=== PATIENT | male | born 1965 | race Caucasian/White ===

== ENCOUNTER 2018-12-11 22:36 | Emergency (ER) | payer BC, OTHER ==
[2018-12-11] MEDS ORDERED: Acetaminophen/HYDROcodone 325-5 MG Tab PO ONE (22:37)
[2018-12-11] MEDS ORDERED: Amoxicillin/Clavulanate K 875-125 MG Tab PO ONE (22:37)
[2018-12-11] MEDS ORDERED: Take Home: Acetaminophen/HYDROcodone 325-5 MG, 2 Tab Pack PO ONE (23:09)
[2018-12-11] MEDS ORDERED: Ketorolac 60 MG/2 ML SDV IM ONE (23:09)
[2018-12-11] MEDS ORDERED: Take Home: Amoxicillin/Clavulanate K 875-125 MG Tab, 2 Tab Pack PO ONE (23:10)
--- NOTE | 2018-12-11 23:14 | EDM.PDOC ---
ED HPI GENERAL MEDICAL PROBLEM - General Chief Complaint: General Stated Complaint: toothache Time Seen by Provider: 12/11/18 23:06 Source of Information: Reports: Patient History Limitations: Reports: No Limitations - History of Present Illness INITIAL COMMENTS - FREE TEXT/NARRATIVE: patient presents to ER with an ongoing toothache. Has been bothering him for about 2 weeks, worse over the last 24 hours. Taking tylenol and had been covering the discomfort for the most part until today. Now rates his pain at a 5/10. Notes that the pain radiates to his left ear and jaw at this time. Plans to call the dentist office on Thursday am. Has a tooth that is broken off on the top left but its the bottom molar that has been causing the pain. No fevers. No facial swelling. Onset: Gradual Duration: Day(s): Location: Reports: Face Quality: Reports: Sharp, Throbbing Severity: Moderate Improves with: Reports: Medication Treatments DIAGNOSTIC ASSISTANT: Reports: Acetaminophen Left Tooth/Teeth Pain Score (Numeric/FACES): 5 - Related Data Allergies Allergy/AdvReac Type Severity Reaction Status Date / Time No Known Allergies Allergy Verified 12/11/18 22:39 Home Meds: Home Meds Cholecalciferol (Vitamin D3) [Vitamin D3] 5,000 unit PO DAILY 12/11/18 [History] Lisinopril 10 mg PO DAILY 12/11/18 [History] Magnesium 250 mg PO DAILY 12/11/18 [History] Multivitamin [Daily Multiple Vitamin] 1 tab PO DAILY 12/11/18 [History] [place]-3/DHA/Epa/Fish Oil [Fish Oil 1,000 mg Softgel] 1 tab PO DAILY 12/11/18 [ History] Potassium 1 tab PO DAILY 12/11/18 [History] metFORMIN HCl [Metformin HCl] 500 mg PO QID 12/11/18 [History] Past Medical History Cardiovascular History: Reports: High Cholesterol, Hypertension Gastrointestinal History: Reports: Colon Polyp Musculoskeletal History: Reports: None Endocrine/Metabolic History: Reports: Diabetes, Type II, Obesity/BMI 30+ - Past Surgical History Cardiovascular Surgical History: Reports: None GI Surgical History: Reports: Colonoscopy, Polypectomy Endocrine Surgical History: Reports: None Musculoskeletal Surgical History: Reports: Arthroscopic Procedure Social & Family History - Family History Family Medical History: Noncontributory - Tobacco Use Smoking Status *Q: Never Smoker Second Hand Smoke Exposure: No - Caffeine Use Caffeine Use: Reports: Coffee - Recreational Drug Use Recreational Drug Use: No ED ROS GENERAL - Review of Systems Review Of Systems: See Below Constitutional: Denies: Fever, Chills, Malaise, Weakness, Decreased Appetite HEENT: Reports: Ear Pain, Other (toothache). Denies: Sinus Problem, Throat Pain , Throat Swelling Respiratory: Denies: Shortness of Breath, Cough Cardiovascular: Denies: Chest Pain, Edema, Lightheadedness Endocrine: Denies: Fatigue GI/Abdominal: Denies: Abdominal Pain, Nausea, Vomiting : Reports: No Symptoms Musculoskeletal: Reports: No Symptoms Skin: Reports: No Symptoms Neurological: Reports: No Symptoms ED EXAM, GENERAL - Physical Exam Exam: See Below Exam Limited By: No Limitations General Appearance: Alert, WD/WN, No Apparent Distress Ears: Normal External Exam, Normal TMs Nose: Normal Inspection, Normal Mucosa, No Blood Throat/Mouth: Normal Inspection, Normal Oropharynx, Other (tender gum line to back lower left area. Tooth has been previously filled. Several missing teeth and a broken tooth on the upper gum line.) Neck: Normal Inspection, Supple, Lymphadenopathy (L) Respiratory/Chest: No Respiratory Distress, Lungs Clear, Normal Breath Sounds Cardiovascular: Regular Rate, Rhythm Course - Vital Signs Last Recorded V/S: Last Vital Signs Temp 97.1 F 12/11/18 22:36 Pulse 80 12/11/18 22:36 Resp 20 12/11/18 22:36 BP 134/82 12/11/18 22:36 Pulse Ox 97 12/11/18 22:36 Departure - Departure Time of Disposition: 23:14 Disposition: Home, Self-Care 01 Condition: Good Clinical Impression: Tooth abscess - Discharge Information *PRESCRIPTION DRUG MONITORING PROGRAM REVIEWED*: No *COPY OF PRESCRIPTION DRUG MONITORING REPORT IN PATIENT ALDAIR: No Additional Instructions: 1. Push fluids 2. Soft diet 3. Alternate [place] one tab with ibuprofen every 3 hours as needed for the pain 4. Augmentin 875 mg BID for 10 days 5. Contact dentist office on Thursday for appointment
== END 2018-12-11 23:28 | disposition home or self-care (01) ==
LOC: CC.ED 22:36
DX: K04.7 Periapical abscess without sinus (principal); I10 Essential (primary) hypertension; E11.9 Type 2 diabetes mellitus without complications; E78.00 Pure hypercholesterolemia, unspecified; Z79.84 Long term (current) use of oral hypoglycemic drugs; Z79.899 Other long term (current) drug therapy
CPT/HCPCS: 96372; 99282; A9270; J1885

== ENCOUNTER 2019-05-26 15:36 | Emergency (ER) | payer BC ==
[2019-05-26] MEDS ORDERED: Aspirin 81 MG Tab.Chew PO ONE (16:13)
--- NOTE | 2019-05-26 16:13 | EDM.PDOC ---
ED HPI GENERAL MEDICAL PROBLEM - General Chief Complaint: Chest Pain Stated Complaint: NAUSEA Time Seen by Provider: 05/26/19 16:06 Source of Information: Reports: Patient History Limitations: Reports: No Limitations - History of Present Illness INITIAL COMMENTS - FREE TEXT/NARRATIVE: States that he went back to work on Thursday after being gone for 3 months as he had bypass in Feb. 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 has been using upper arms to pull himself up. He has been nauseated but no vomiting. Did not eat anything unusual. No SOB noted. Pain across the left chest does increase with movement of the left arm. No increase in pain with deep breathe. Location: Reports: Chest Quality: Reports: Ache, Pressure Associated Symptoms: Reports: Chest Pain. Denies: Cough chest tightness Pain Score (Numeric/FACES): 2 - Related Data Allergies Allergy/AdvReac Type Severity Reaction Status Date / Time No Known Allergies Allergy Verified 05/26/19 15:44 Home Meds: Home Meds Lisinopril 10 mg PO DAILY 12/11/18 [History] Magnesium 250 mg PO DAILY 12/11/18 [History] Multivitamin [Daily Multiple Vitamin] 1 tab PO DAILY 12/11/18 [History] [place]-3/DHA/Epa/Fish Oil [Fish Oil 1,000 mg Softgel] 1,000 mg PO DAILY 12/11/18 [History] Potassium 1 tab PO DAILY 12/11/18 [History] Ascorbic Acid [Vitamin C] 1,000 mg PO DAILY 03/29/19 [History] Aspirin [Halfprin] 81 mg PO DAILY 03/29/19 [History] Metoprolol Succinate [Toprol XL 100mg] 100 mg PO DAILY 03/29/19 [History] atorvaSTATin [Lipitor] 40 mg PO DAILY 03/29/19 [History] metFORMIN HCl [Metformin HCl] 1,000 mg PO BID 03/29/19 [History] Past Medical History Cardiovascular History: Reports: High Cholesterol, Hypertension Other Cardiovascular History: sees Dr. Tacho Gomez. Had diabetic appt, mentioned he had been SOB when outside walking as well as some arm and shoulder pain. Had a stress test in [place], then sent to see cardiology in [place]. Has had an echo here. Said he had a recent A1c at 7.8. Has had ankle surgery in the past, is diabetic. Postop: said he has seen Dr. Gomez twice, and kalyani twice. Has seen Rahul Stover in the past Gastrointestinal History: Reports: Colon Polyp Musculoskeletal History: Reports: None Endocrine/Metabolic History: Reports: Diabetes, Type II, Obesity/BMI 30+ - Past Surgical History Cardiovascular Surgical History: Reports: None, Coronary Artery Bypass GI Surgical History: Reports: Colonoscopy, Polypectomy Endocrine Surgical History: Reports: None Musculoskeletal Surgical History: Reports: Arthroscopic Procedure Social & Family History - Family History Family Medical History: Noncontributory - Tobacco Use Smoking Status *Q: Never Smoker - Caffeine Use Caffeine Use: Reports: Coffee - Living Situation & Occupation Living situation: Reports: , with Spouse Occupation: Employed ED ROS GENERAL - Review of Systems Review Of Systems: See Below Constitutional: Denies: Fever, Chills HEENT: Reports: No Symptoms Respiratory: Reports: No Symptoms Cardiovascular: Reports: Chest Pain. Denies: Edema, Lightheadedness GI/Abdominal: Reports: No Symptoms Musculoskeletal: Reports: Other (see HPI) Skin: Reports: No Symptoms Neurological: Reports: No Symptoms ED EXAM, GENERAL - Physical Exam Exam: See Below Exam Limited By: No Limitations General Appearance: Alert, WD/WN, Mild Distress Ears: Normal External Exam, Normal Canal, Normal TMs Nose: Normal Inspection Throat/Mouth: Normal Inspection, Normal Oropharynx, No Airway Compromise Head: Atraumatic, Normocephalic Neck: Normal Inspection, Supple, Non-Tender, Full Range of Motion Respiratory/Chest: No Respiratory Distress, Lungs Clear, Normal Breath Sounds, Other (anterior left chest wall is tender with palpation to the area. Increase in discomfort noted when moving the left arm above head. NO bruising or swelling noted.) Cardiovascular: Regular Rate, Rhythm, No Edema GI/Abdominal: Normal Bowel Sounds, Soft, Non-Tender Back Exam: Normal Inspection, Full Range of Motion Extremities: Normal Inspection, Normal Range of Motion, Non-Tender, No Pedal Edema, Normal Capillary Refill Neurological: Alert, Oriented Psychiatric: Normal Affect Skin Exam: Warm, Dry, Intact Course - Vital Signs Last Recorded V/S: Last Vital Signs Temp 98.2 F 05/26/19 16:28 Pulse 82 05/26/19 16:28 Resp 19 05/26/19 16:28 BP 170/84 H 12/19/19 16:28 Pulse Ox 97 05/26/19 16:28 - Orders/Labs/Meds Labs: Laboratory Tests 05/26/19 05/26/19 05/26/19 Range/Units 16:09 16:10 16:11 WBC 5.4 (5.0-10.0) 10^3/uL RBC 5.17 (4.50-6.00) 10^6/uL Hgb 13.8 L (14.0-18.0) g/dL Hct 42.7 (40.0-54.0) % MCV 82.6 (82.0-94.0) fL MCH 26.7 L (27.0-32.0) pg MCHC 32.3 L (33.0-38.0) g/dL RDW Coeff of [place] 15.3 H (11.0-15.0) % Plt Count 263 (150-400) 10^3/uL Neut % (Auto) 51.2 (35-85) % Lymph % (Auto) 38.4 (10-55) % [place] % (Auto) 7.6 (0-16) % Eos % (Auto) 2.6 (0-5) % Baso % (Auto) 0.2 (0-3) % Neut # (Auto) 2.74 (1.80-7.00) 10^3/uL Lymph # (Auto) 2.06 (1.00-4.80) 10^3/uL [place] # (Auto) 0.41 (0.00-0.80) 10^3/uL Eos # (Auto) 0.14 (0.00-0.45) 10^3/uL Baso # (Auto) 0.01 10^3/uL PT 9.8 (9.7-12.3) SEC INR 0.95 (0.92-1.18) APTT 25.5 (23.2-32.3) SEC Sodium 140 (136-145) mEq/L Potassium 4.3 (3.5-5.0) mEq/L Chloride 103 (98-106) mEq/L Carbon Dioxide 26 (21-32) mmol/L BUN 24 H (7-18) mg/dL Creatinine 1.0 (0.7-1.3) mg/dL Est Cr Clr Drug Dosing 87.19 mL/min Estimated GFR (MDRD) > 60 (>=60) mL/min Glucose 171 H D (75-99) mg/dL Calcium 9.1 (8.4-10.1) mg/dL Total Bilirubin 0.2 (0.0-1.0) mg/dL AST 14 L (15-37) U/L ALT 34 (12-78) U/L Alkaline Phosphatase 85 (46-116) U/L Lactate Dehydrogenase 137 (100-190) U/L Creatine Kinase 107 (35-232) U/L Troponin I < 0.017 (0.00-0.06) ng/mL Total Protein 7.3 (6.4-8.2) g/dL Albumin 3.8 (3.4-5.0) g/dL Lipase 216 (73-393) U/L Meds: Medications Discontinued Medications Generic Name Dose Route Start Last Admin Trade Name Freq PRN Reason Stop Dose Admin Aspirin 324 mg 05/26/19 16:13 05/26/19 16:16 Aspirin PO 05/26/19 16:14 324 mg ONETIME ONE Administration Departure - Departure Time of Disposition: 17:00 Disposition: Home, Self-Care 01 Condition: Good Clinical Impression: Chest wall pain Instructions: Chest Wall Pain, [id number] Referrals: Tacho Gomez MD [Primary Care Provider] - Forms: ED Department Discharge Additional Instructions: tylenol or advil as needed for pain Do less pulling and pushing with upper arms. Need to increase the muscle strength in upper arms with exercises recheck if pain changes or becomes worse. Sepsis Event Note - Evaluation Sepsis Screening Result: No Definite Risk - Focused Exam Date Exam was Performed: 05/27/19 Time Exam was Performed: 18:00 - Problem List & Annotations (1) Chest wall pain SNOMED Code(s): 419235048 Code(s): R07.89 - OTHER CHEST PAIN Status: Acute Priority: High - Problem List Review Problem List Initiated/Reviewed/Updated: Yes
[2019-05-26 16:36] LABS: CHLORIDE,CL 103 mEq/L (98-106); SODIUM,NA 140 mEq/L (136-145)
== END 2019-05-26 17:09 | disposition home or self-care (01) ==
LOC: CC.ED 15:36
DX: R07.89 Other chest pain (principal); E78.00 Pure hypercholesterolemia, unspecified; I10 Essential (primary) hypertension; E11.9 Type 2 diabetes mellitus without complications; E66.9 Obesity, unspecified; Z68.33 Body mass index [BMI] 33.0-33.9, adult; Z95.1 Presence of aortocoronary bypass graft; Z79.899 Other long term (current) drug therapy; Z79.82 Long term (current) use of aspirin; Z79.84 Long term (current) use of oral hypoglycemic drugs
CPT/HCPCS: 36415; 71046; 80053; 82550; 83615; 83690; 84484; 85025; 85610; 85730; 93005; 99285-25; A9270-GY

== ENCOUNTER 2019-10-22 10:07 | Emergency (ER) | payer BC, OTHER ==
[2019-10-22] MEDS ORDERED: Lidocaine 1% 20 ML MDV INJECT ONE (10:11)
[2019-10-22] MEDS ORDERED: Diphtheria,Pertussis(Acell),Tetanus Vaccine 0.5 ML Syringe IM ONE (10:58)
--- NOTE | 2019-10-22 11:05 | EDM.PDOC ---
ED HPI GENERAL MEDICAL PROBLEM - General Chief Complaint: Laceration Stated Complaint: "Cut my fingers" Time Seen by Provider: 10/22/19 10:07 Source of Information: Reports: Patient History Limitations: Reports: No Limitations - History of Present Illness INITIAL COMMENTS - FREE TEXT/NARRATIVE: Patient to the emergency department where he advised his work on some machinery and using a hammer and accidentally struck his right hand the PIP aspect of the second third digit. The patient has a 3 cm laceration to the PIP aspect of the second digit and has a 0.25 cm flap type laceration to the PIP aspect of the third digit. Bleeding is controlled there is no numbness or tingling. There is no other symptoms this happened just prior to arrival. 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 (see below) (none) - Related Data Allergies Allergy/AdvReac Type Severity Reaction Status Date / Time No Known Allergies Allergy Verified 10/22/19 10:10 Home Meds: Home Meds Lisinopril 10 mg PO DAILY 12/11/18 [History] Magnesium 250 mg PO DAILY 12/11/18 [History] Multivitamin [Daily Multiple Vitamin] 1 tab PO DAILY 12/11/18 [History] [place]-3/DHA/Epa/Fish Oil [Fish Oil 1,000 mg Softgel] 1,000 mg PO DAILY 12/11/18 [History] Potassium 1 tab PO DAILY 12/11/18 [History] Ascorbic Acid [Vitamin C] 1,000 mg PO DAILY 03/29/19 [History] Aspirin [Halfprin] 81 mg PO DAILY 03/29/19 [History] Metoprolol Succinate [Toprol XL 100mg] 100 mg PO DAILY 03/29/19 [History] atorvaSTATin [Lipitor] 40 mg PO DAILY 03/29/19 [History] metFORMIN HCl [Metformin HCl] 1,000 mg PO BID 03/29/19 [History] Past Medical History Cardiovascular History: Reports: High Cholesterol, Hypertension Other Cardiovascular History: sees Dr. Tacho Gomez. Had diabetic appt, mentioned he had been SOB when outside walking as well as some arm and shoulder pain. Had a stress test in [place], then sent to see cardiology in [place]. Has had an echo here. Said he had a recent A1c at 7.8. Has had ankle surgery in the past, is diabetic. Postop: said he has seen Dr. Gomez twice, and kalyani twice. Has seen Rahul Stover in the past Gastrointestinal History: Reports: Colon Polyp Musculoskeletal History: Reports: None Endocrine/Metabolic History: Reports: Diabetes, Type II, Obesity/BMI 30+ - Past Surgical History Cardiovascular Surgical History: Reports: None, Coronary Artery Bypass GI Surgical History: Reports: Colonoscopy, Polypectomy Endocrine Surgical History: Reports: None Musculoskeletal Surgical History: Reports: Arthroscopic Procedure Social & Family History - Family History Family Medical History: Noncontributory - Caffeine Use Caffeine Use: Reports: Coffee - Living Situation & Occupation Living situation: Reports: , with Spouse Occupation: Employed ED ROS GENERAL - Review of Systems Review Of Systems: See Below Constitutional: Reports: No Symptoms. Denies: Fever HEENT: Reports: No Symptoms. Denies: Ear Pain, Nose Pain, Throat Pain Respiratory: Reports: No Symptoms. Denies: Shortness of Breath, Cough Cardiovascular: Reports: No Symptoms GI/Abdominal: Reports: No Symptoms. Denies: Nausea, Vomiting Musculoskeletal: Reports: Joint Pain (right 2nd and 3rd digits). Denies: Neck Pain, Back Pain Skin: Reports: Wound (right 2nd and 3rd digits ) Neurological: Reports: No Symptoms. Denies: Dizziness, Headache Psychiatric: Reports: No Symptoms ED EXAM, SKIN/RASH Exam: See Below Exam Limited By: No Limitations General Appearance: Alert, WD/WN, No Apparent Distress Head: Atraumatic, Normocephalic Neck: Normal Inspection, Supple, Non-Tender, Full Range of Motion Respiratory/Chest: No Respiratory Distress, Lungs Clear, Normal Breath Sounds, Chest Non-Tender Cardiovascular: Normal Peripheral Pulses, Regular Rate, Rhythm, No Murmur Peripheral Pulses: 2+: Radial (L), Radial (R) Extremities: Normal Range of Motion, Normal Capillary Refill, Other (contusions/ lacerations 2nd and 3rd digits at the PIP aspects) Neurological: Alert, Oriented, Normal Cognition, Normal Gait, No Motor/Sensory Deficits Psychiatric: Normal Affect, Normal Mood Skin: Warm, Dry, Normal Color. No: Intact Location, Skin: Upper Extremity, Right Associated features: Tenderness, Swelling Course - Vital Signs Text/Narrative:: The patient was evaluated in the emergency department x-rays of the right hand was obtained and does not show any fracture dislocation. This is a preliminary reading and the radiology reading is still pending. The patient was advised the need to close the wound on the second digit and the risk and benefits was explained and he agreed to proceed. The wound was cleaned and then a digital block was performed and sutures were placed. The patient tolerated the procedure well. The patient tetanus shot was updated and the patient was given Keflex 1 g p.o. The patient is advised to have the wound rechecked in 2 days and he is advised to monitor for any increased redness pain swelling and if any of these happens he is to return to the emergency department immediately. The patient is verbal understanding Procedure: Second digit of the right hand was digitally blocked with 1% lidocaine with a total amount of 5 mL 1% lidocaine. Once the digit was numbed the area was cleaned with wound tank car cleaner extensively and irrigated with some normal saline. Following this using five-point 0 nylon sutures there were 5 sutures placed. Following this the wound was cleaned and a dressing was applied followed by a aluminum metal finger splint to help keep the joint immobile to allow healing. Distal sensation and capillary refill was normal before and after application and procedure of the finger. The superficial flap laceration on the third digit was cleaned there is no need for any suture and a sterile dressing was applied to this. - Orders/Labs/Meds Orders: Active Orders 24 hr Category Date Time Status Vaccines to be Administered [RC] PER UNIT ROUTINE Care 10/22/19 10:58 Active Hand Comp Min 3V Rt [CR] Routine Exams 10/22/19 Taken Meds: Medications Discontinued Medications Generic Name Dose Route Start Last Admin Trade Name Freq PRN Reason Stop Dose Admin Cephalexin 1,000 mg 10/22/19 11:28 10/22/19 11:30 Keflex PO 10/22/19 11:29 1,000 mg ONETIME ONE Administration Diphtheria/Tetanus/Acell Pertussis 0.5 ml 10/22/19 10:58 10/22/19 10:50 Adacel IM 10/22/19 10:59 0.5 ml .ONCE ONE Administration Lidocaine HCl 20 ml 10/22/19 10:11 10/22/19 10:45 Xylocaine 1% INJECT 10/22/19 10:12 20 ml ONETIME ONE Administration Departure - Departure Time of Disposition: 11:25 Disposition: Home, Self-Care 01 Condition: Good Clinical Impression: Contusion of right index finger without damage to nail, initial encounter, Contusion of right middle finger without damage to nail, initial encounter, Laceration of right index finger - Discharge Information *PRESCRIPTION DRUG MONITORING PROGRAM REVIEWED*: Not Applicable *COPY OF PRESCRIPTION DRUG MONITORING REPORT IN PATIENT ALDAIR: Not Applicable Instructions: Laceration Care, Adult, Wound Care, Adult, Sutured Wound Care, [id number] Forms: ED Department Discharge Additional Instructions: Keep the wounds clean and dry Apply thin coating Neosporin 3 times a day Leave the wounds open to air when you are in a clean environment to promote healing Return to the emergency department sooner if worse or any problems Alternate Tylenol and Motrin as needed for pain Sepsis Event Note - Focused Exam Date Exam was Performed: 10/22/19 Time Exam was Performed: 13:52 - Problem List & Annotations (1) Contusion of right index finger without damage to nail, initial encounter SNOMED Code(s): 15218107, 98512216 Code(s): S60.021A - CONTUSION OF RIGHT INDEX FINGER W/O DAMAGE TO NAIL, INIT Status: Acute Priority: Medium (2) Contusion of right middle finger without damage to nail, initial encounter SNOMED Code(s): 02577234, 46875071 Code(s): S60.031A - CONTUSION OF RIGHT MIDDLE FINGER W/O DAMAGE TO NAIL, INIT Status: Acute Priority: Medium (3) Laceration of right index finger SNOMED Code(s): 93098102914433652 Code(s): S61.210A - LACERATION W/O FB OF R IDX FNGR W/O DAMAGE TO NAIL, INIT Status: Acute Priority: Medium Qualifiers: Encounter type: initial encounter - Problem List Review Problem List Initiated/Reviewed/Updated: Yes - My Orders Last 24 Hours: My Active Orders 10/22/19 Hand Comp Min 3V Rt [CR] Routine 10/22/19 10:58 Vaccines to be Administered [RC] PER UNIT ROUTINE - Assessment/Plan Last 24 Hours: My Active Orders 10/22/19 Hand Comp Min 3V Rt [CR] Routine 10/22/19 10:58 Vaccines to be Administered [RC] PER UNIT ROUTINE Plan: As above
[2019-10-22] MEDS ORDERED: Cephalexin 500 MG Cap PO ONE (11:28)
== END 2019-10-22 11:45 | disposition home or self-care (01) ==
LOC: CC.ED 10:07
DX: S61.210A Laceration without foreign body of right index finger without damage to nail, initial encounter (principal); S61.212A Laceration without foreign body of right middle finger without damage to nail, initial encounter; I10 Essential (primary) hypertension; E11.9 Type 2 diabetes mellitus without complications; E66.9 Obesity, unspecified; Z95.1 Presence of aortocoronary bypass graft; Z79.899 Other long term (current) drug therapy; Z79.82 Long term (current) use of aspirin; Z79.84 Long term (current) use of oral hypoglycemic drugs; E78.00 Pure hypercholesterolemia, unspecified; Z23 Encounter for immunization; W22.8XXA Striking against or struck by other objects, initial encounter
CPT/HCPCS: 12001; 12002; 73130-RT; 90471; 90715; 99283-25; A9270-GY; J2001

== ENCOUNTER → 2021-09-20 | Day surgery (SDC) | payer BC, OTHER ==
[~2021-09-20] MED LIST: Flumazenil 0.1 MG/ML 10 ML MDV ONE; Lactated Ringers 1,000 ML IV SCH; Midazolam 1 MG/ML 2 ML SDV ONE; Propofol 200 MG/20 ML SDV ONE; fentaNYL 100 MCG/2 ML SDV ONE
== END ==
LOC: CC.SDS 08:45
PROVIDERS: ATTEND Family Medicine
DX: Z12.11 Encounter for screening for malignant neoplasm of colon (principal); K63.5 Polyp of colon; K57.30 Diverticulosis of large intestine without perforation or abscess without bleeding; E11.9 Type 2 diabetes mellitus without complications; E55.9 Vitamin D deficiency, unspecified; I10 Essential (primary) hypertension; N40.0 Benign prostatic hyperplasia without lower urinary tract symptoms; I25.10 Atherosclerotic heart disease of native coronary artery without angina pectoris; E78.00 Pure hypercholesterolemia, unspecified; I25.2 Old myocardial infarction; G47.30 Sleep apnea, unspecified; Z79.84 Long term (current) use of oral hypoglycemic drugs; Z79.899 Other long term (current) drug therapy
CPT/HCPCS: 00812; J2250; J2704; J3010; J7120